=== PATIENT | male | born 1990 | race Caucasian/White ===

== ENCOUNTER 2019-12-15 19:23 | Emergency (ER) | payer BC ==
[2019-12-15 19:40] VITALS: TEMP 97.3
[2019-12-15] MEDS ORDERED: LIDOCAINE 1% 10 ML VIAL INJ ONE (20:03)
[2019-12-15 21:27] VITALS: BP 138/75; O2SAT 97
--- NOTE | 2019-12-15 21:27 | ED.PDOC ---
History of Present Illness - General Chief Complaint: Skin/Abrasion/Tear Stated Complaint: fishhook in my thumb Time Seen by Provider: 12/15/19 21:23 Source: patient, RN notes reviewed, Vital Signs reviewed Exam Limitations: no limitations - History of Present Illness Initial Comments: Patient is a 29-year-old white male who impaled a trouble hook in his right thumb while fishing this evening. The pain is sharp and stabbing in nature. It is mild in intensity. It is constant. There is no radiation of the pain. Timing/Duration: 1-3 hours Severity: mild Improving Factors: nothing Worsening Factors: movement Associated Symptoms: denies symptoms Home Medications: Ambulatory Orders Clindamycin HCl [Cleocin] 300 mg PO Q6H #20 capsule 12/15/19 Review of Systems - Review of Systems Constitutional: States: no symptoms reported, see HPI. Denies: chills, fever, malaise, weakness EENTM: States: no symptoms reported. Denies: eye pain, blurred vision, double vision Respiratory: States: no symptoms reported. Denies: cough, short of breath, wheezing Cardiology: States: no symptoms reported. Denies: chest pain, palpitations, syncope Gastrointestinal/Abdominal: States: no symptoms reported. Denies: abdominal pain, diarrhea, nausea Genitourinary: States: no symptoms reported Musculoskeletal: States: see HPI, other - Right thumb pain Skin: States: no symptoms reported. Denies: change in color, rash Endocrine: States: no symptoms reported Hematologic/Lymphatic: States: no symptoms reported All other Systems: Reviewed and Negative Past Medical History (General) - Patient Medical History Hx Seizures: No Hx Stroke: No Hx Dementia: No Hx Asthma: No Hx of COPD: No Hx Cardiac Disorders: No Hx Congestive Heart Failure: No Hx Pacemaker: No Hx Hypertension: No Hx Thyroid Disease: No Hx Diabetes: No Hx Gastroesophageal Reflux: No Hx Renal Disease: No Hx Cancer: No Hx of HIV: No Hx Hepatitis C: No Hx MRSA: No Surgical History: no surgical history - Vaccination History Hx Tetanus, Diphtheria Vaccination: No Hx Influenza Vaccination: No Hx Pneumococcal Vaccination: No - Social History Hx Tobacco Use: No Hx Chewing Tobacco Use: No Hx Alcohol Use: No Hx Substance Use: No Hx Substance Use Treatment: No Hx Depression: No Feels Threatened In Home Enviroment: No Feels Threatened In a Relationship: No Hx Physical Abuse: No Hx Emotional Abuse: No Hx Suspected Abuse: No - Female History Patient is a Female of Child Bearing Age (10 -59 yrs old): No Family Medical History - Family History Mother Family History: Unknown Physical Exam - Physical Exam General Appearance: Alert, Anxious, Obvious distress, Well Developed, Well Groomed, Well Hydrated, Well Nourished Eye Exam: bilateral normal Ears, Nose, Throat: hearing grossly normal, normal ENT inspection, normal pharynx Neck: non-tender, full range of motion, supple Respiratory: chest non-tender, lungs clear, normal breath sounds, no respiratory distress Cardiovascular/Chest: normal peripheral pulses, regular rate, rhythm Peripheral Pulses: radial,right: 2+, radial,left: 2+ Gastrointestinal/Abdominal: normal bowel sounds, non tender, soft Extremity: normal range of motion, other - Trouble hook in the right distal thumb. Cap refill less than 2 seconds. Neurovascularly intact distally. Skin Exam: normal color, warm/dry Lymphatic: no adenopathy Progress - Progress Progress: Differential diagnosis: [place] in thumb, foreign body in thumb, thumb abscess, cellulitis among others. 12/15/19 21:33 [place] successfully removed without any difficulty or complications. Patient given his Tdap prophylaxis. Plan on discharge home at this time. I discussed this plan of care with the patient and he voices understanding and agreement. Nestor Lopez M.D. #[id number] Procedures - Foreign Body Removal Foreign Body Removal: fish hook Foreign Body Physician Comment:: Patient with a fishhook, trouble hook, and his right thumb. After informed Departure - Departure Clinical Impression: Need for prophylactic vaccination against diphtheria, tetanus, acellular pertussis, poliovirus, and hepatitis B virus [place] injury to finger Qualifiers: Encounter type: initial encounter Laterality: right Qualified Code(s): S69.91XA - Unspecified injury of right wrist, hand and finger(s), initial encounter Time of Disposition: 21:38 Disposition: Discharge to Home or Self Care Condition: Good Departure Forms: ED Discharge - Pt. Copy, Patient Portal Self Enrollment Instructions: DI for Abrasion, Foreign Body in Skin (DC) Diet: resume usual diet Activity: increase activity as tolerated Prescriptions: Clindamycin HCl [Cleocin] 300 mg PO Q6H #20 capsule Home Medications: Ambulatory Orders Clindamycin HCl [Cleocin] 300 mg PO Q6H #20 capsule 12/15/19
[2019-12-15] MEDS ORDERED: TETANUS,DIPHTHERIA,PERTUSSIS 1 EA SYG IM ONE (21:39)
[2019-12-15] MEDS ORDERED: CLINDAMYCIN PHOSPHATE 150 MG/ML VIAL IM ONE (21:39)
== END 2019-12-15 21:54 | disposition home or self-care (01) ==
LOC: ER 19:23
DX: S60.351A Superficial foreign body of right thumb, initial encounter (principal); W45.8XXA Other foreign body or object entering through skin, initial encounter; Z88.1 Allergy status to other antibiotic agents; Y92.9 Unspecified place or not applicable
CPT/HCPCS: 90471; 90715; J3490